=== PATIENT | male | born 1940 | race Caucasian/White ===

== ENCOUNTER → 2021-03-25 | Outpatient (CLI) | payer MEDICARE | LOC: US 12:29 | DX: N18.4 Chronic kidney disease, stage 4 (severe) (principal); N28.9 Disorder of kidney and ureter, unspecified; N40.1 Benign prostatic hyperplasia with lower urinary tract symptoms; N13.8 Other obstructive and reflux uropathy; R39.198 Other difficulties with micturition | CPT/HCPCS: 76857 ==